=== PATIENT | male | born 1965 | race Caucasian/White ===

== ENCOUNTER 2018-01-26 07:41 | Day surgery (SDC) | payer MEDICARE ==
[~2018-01-26] VITALS: Ht 185.4 cm; Wt 81.4 kg
[2018-01-26] VITALS (7 sets, daily range): BP systolic 91–120; BP diastolic 50–80; PULSE 58–65; RESP 17–19; TEMP 97.9–98.1; O2SAT 93–99
[~2018-01-26 07:41] MED LIST: ALPR.25 PO; ASPI-516 CHEW; ENOX40P SQ; MAGN30S PO; METH500T3 PO; PERC10TA27 PO; PERI PO; SILD20TA11 PO; SOTA120T PO; TAMS5CAP PO; WALKER/FOLDING1 MIS; WHEEMIS3
[2018-01-26] MEDS ORDERED: SODIUM CHLOR 0.9% 1000 ML INJ 1,000 ML IV SCH (08:15)
[2018-01-26] MEDS ORDERED: BUPR150CR PO (08:15)
[2018-01-26] MEDS ORDERED: TIZA4CAP3 PO (08:16)
[2018-01-26] MEDS ORDERED: ATOR40TA16 PO (08:16)
[2018-01-26 08:41] LABS: AUTOMATED NEUTROPHIL # 4.5 TH/MM3 (1.8-7.7); BASOPHIL # 0.1 TH/MM3 (0-0.2); BASOPHIL % 0.9 % (0.0-2.0); EOSINOPHIL % 12.8 % (0.0-4.0); HEMATOCRIT 40.9 % (39.0-51.0); HEMOGLOBIN 13.7 GM/DL (13.0-17.0); LYMPH % 15.7 % (9.0-44.0); LYMPHOCYTE # 1.2 TH/MM3 (1.0-4.8); MEAN CELL VOLUME 87.4 FL (80.0-100.0); MEAN CORPUSCULAR HEMOGLOBIN 29.2 PG (27.0-34.0); MEAN CORPUSCULAR HGB CONC 33.4 % (32.0-36.0); MEAN PLATELET VOLUME 6.8 FL (7.0-11.0); MONO % 11.2 % (0.0-8.0); MONOCYTE # 0.8 TH/MM3 (0-0.9); NEUT % 59.4 % (16.0-70.0); PLATELET COUNT 260 TH/MM3 (150-450); RED BLOOD COUNT 4.69 MIL/MM3 (4.50-5.90); RED CELL DISTRIBUTION WIDTH 13.7 % (11.6-17.2); WHITE BLOOD COUNT 7.5 TH/MM3 (4.0-11.0)
[2018-01-26 08:49] LABS: INTERNATIONAL NORMALIZED RATIO 1.1 RATIO; PROTHROMBIN TIME - PATIENT 11.3 SEC (9.8-11.6)
[2018-01-26] MEDS ORDERED: MIDAZOLAM HCL 2 MG/2 ML VIAL ONE (09:32)
--- NOTE | 2018-01-26 10:24 | PD.RAD ---
Post CT Procedure Prog Note Pre Procedure Diagnosis: (1) Mass of upper lobe of right lung Post Procedure Diagnosis: (1) Mass of upper lobe of right lung Procedure Date: Jan 26, 2018 Supervising Radiologist: Alber Chowdhury Estimated blood loss: minimal Anesthesia: Conscious Sedation Plan of Activity Patient to Unit: ROPU Patient Condition: Good See PACS Report for procedural detail/treatment Biopsy Imaging Guidance: CT Side: Right Biopsy Procedure: Lung Site: right upper lobe Specimen: Core Biopsy Plan to ROPU and post procedure CXR Alber Chowdhury MD Jan 26, 2018 10:24
[2018-01-26] MEDS ORDERED: oxyCODONE/ACETAMINOPHEN 5 MG/325 MG TAB PO PRN (10:30)
--- NOTE | 2018-01-26 11:53 | RADRPT ---
EXAM DATE: 01/26/2018 11:47 AM EDT AGE/SEX: 52 years / Male INDICATIONS: Pneumothorax CLINICAL DATA: This is the patient's initial encounter. Patient reports that signs and symptoms have been present for 1 day and indicates a pain score of 0/10. MEDICAL/SURGICAL HISTORY: None. None. COMPARISON: [facility] [place]LE [place]OPSY LUNG, RIGHT, 01/26/2018. . FINDINGS: A single frontal expiratory view of the chest was performed. Right upper lobe pulmonary mass again no ama. No pneumothorax. No effusions. Heart is normal in size. Bilateral clavicular orthopedic plates. Old right-sided rib fractures. CONCLUSION: No pneumothorax following right upper lobe pulmonary mass biopsy. Electronically signed by: Cesar Panda MD 01/26/2018 11:52 AM EDT
--- NOTE | 2018-01-26 12:27 | RADRPT ---
EXAM DATE: 01/26/2018 10:38 AM EDT AGE/SEX: 52 years / Male INDICATIONS: Right lung mass CLINICAL DATA: This is the patient's subsequent encounter. Patient reports that signs and symptoms h ave been present for 1 day and indicates a pain score of 0/10. MEDICAL/SURGICAL HISTORY: Hypertension. . Bilateral ORIF clavicles COMPARISON: No prior [facility] exams available for comparison. SEDATION TIME (min): 25 minutes BIOPSY SITE: Right lung MEDICATION(S): 4 mg midazolam (Versed) IV 200 mcg fentanyl (Sublimaze) IV DEVICE(S): 20 gauge BARD biopsy needle 19 gauge Introducer . . PROCEDURE: CT guided Right lung biopsy Prior to the procedure informed consent was obtained. Any appropriate prior imaging studies were rev iewed. Using automated exposure control and adjustment of the mA and/or kV according to patient size , radiation dose was kept as low as reasonably achievable to obtain optimal diagnostic quality images . DICOM format image data is available electronically for review and comparison. The site was prepped in a sterile fashion. Full sterile technique was used, including cap, mask, petty rile gloves and gown and a large sterile sheet. Hand hygiene and 2% chlorhexidine and/or betadine/al cohol prep was utilized per protocol for cutaneous antisepsis. The skin and subcutaneous tissues wer e infiltrated with local anesthetic solution. With CT guidance the right upper lobe lung mass was localized. Biopsy was performed using the prescri bed needle as above. The inspector material disposition was present during the procedure. She felt that there was necrosis within the sample but adequate cells were also obtained. Adequate hemostasis was obtained wi th compression at the puncture site. Follow-up CT scan reveals no pneumothorax. There is mild perilesional hemorrhage. Conscious sedation was performed with the prescribed dosages and duration as above in the presence of an independent trained radiology nurse to assist in the monitoring of the patient. EKG and oximetry remained stable throughout the procedure. The patient tolerated the procedure well and there were no complications. The patient was sent to Radiology Outpatient Unit in stable condition. CONCLUSION: 1. Uncomplicated CT guided biopsy of the right upper lobe lung mass. Electronically signed by: Alber Chowdhury MD 01/26/2018 12:26 PM EDT
--- NOTE | 2018-01-26 13:15 | RADRPT ---
EXAM DATE: 01/26/2018 1:10 PM EDT AGE/SEX: 52 years / Male INDICATIONS: Right lung biopsy, evaluate for pneumothorax. CLINICAL DATA: This is the patient's subsequent encounter. Patient reports that signs and symptoms h ave been present for 2 days and indicates a pain score of 3/10. MEDICAL/SURGICAL HISTORY: Hypertension. . Bilateral ORIF clavicles. COMPARISON: [facility] – [place], CHEST EXPIRATION ONLY, 01/26/2018. . FINDINGS: Right upper lobe mass is again seen. There is no pneumothorax. There is no change. CONCLUSION: No pneumothorax post biopsy. Electronically signed by: Lane Harvey MD 01/26/2018 1:14 PM EDT
== END 2018-01-26 13:40 | disposition home or self-care (01) ==
LOC: HRAD 07:41 → HRIP 07:45 → HRAD 13:40
PROVIDERS: ATTEND Internal Medicine Hematology & Oncology
DX: R91.8 Other nonspecific abnormal finding of lung field (principal); I10 Essential (primary) hypertension; I48.91 Unspecified atrial fibrillation; F17.200 Nicotine dependence, unspecified, uncomplicated
CPT/HCPCS: 32405; 71045; 77012; 85025; 85610; 85730; 87015; 87070; 87102; 87116; 87205; 87206; 88305; 88333; 88341; 88342; 99152; 99153; J2250; J3010; J7030; 47000

== ENCOUNTER → 2018-02-10 | Outpatient (CLI) | payer MEDICARE ==
[~2018-02-10] MED LIST changes: +ATOR40TA16 PO; +BUPR150CR PO; -ENOX40P SQ; -MAGN30S PO; -METH500T3 PO; -PERI PO; -SILD20TA11 PO; -TAMS5CAP PO; +TIZA4CAP3 PO
[2018-02-10 12:07] LABS: AUTOMATED NEUTROPHIL # 13.6 TH/MM3 (1.8-7.7); BASOPHIL % 0.3 % (0.0-2.0); EOSINOPHIL # 0.1 TH/MM3 (0-0.4); EOSINOPHIL % 0.4 % (0.0-4.0); HEMATOCRIT 40.7 % (39.0-51.0); HEMOGLOBIN 13.4 GM/DL (13.0-17.0); LYMPH % 8.9 % (9.0-44.0); LYMPHOCYTE # 1.5 TH/MM3 (1.0-4.8); MEAN CELL VOLUME 86.6 FL (80.0-100.0); MEAN CORPUSCULAR HEMOGLOBIN 28.5 PG (27.0-34.0); MEAN CORPUSCULAR HGB CONC 32.9 % (32.0-36.0); MEAN PLATELET VOLUME 7.6 FL (7.0-11.0); MONOCYTE # 1.5 TH/MM3 (0-0.9); NEUT % 81.4 % (16.0-70.0); PLATELET COUNT 379 TH/MM3 (150-450); RED BLOOD COUNT 4.71 MIL/MM3 (4.50-5.90); RED CELL DISTRIBUTION WIDTH 14.1 % (11.6-17.2); WHITE BLOOD COUNT 16.7 TH/MM3 (4.0-11.0)
[2018-02-10 12:16] LABS: INTERNATIONAL NORMALIZED RATIO 1.1 RATIO; PROTHROMBIN TIME - PATIENT 11.3 SEC (9.8-11.6)
--- NOTE | 2018-02-10 12:16 | RADRPT ---
EXAM DATE: 02/10/2018 12:09 PM EDT AGE/SEX: 52 years / Male INDICATIONS: Evaluate for pneumonia, pneumothorax or communicable disease. Pre op thoracotomy. CLINICAL DATA: This is the patient's initial encounter. Patient reports that signs and symptoms have been present for 1 day and indicates a pain score of 0/10. MEDICAL/SURGICAL HISTORY: Carcinoma, lung. Hypertension. Afib . Bilateral clavicle fractures COMPARISON: [facility] – [place], [place]ST EXPIRATION ONLY, 01/26/2018. . FINDINGS: PA and lateral views the chest were obtained again demonstrate the large mass in the right upper lobe . There is no pneumothorax. The left lung remains clear. There are no new infiltrates or effusions. S crew-plate fixation devices are again noted along both clavicles. The heart size remains within jonah l limits. CONCLUSION: Stable appearance with known large mass right upper lobe. Otherwise no acute cardiopulmonary disease. Electronically signed by: Tone Lau MD 02/10/2018 12:15 PM EDT
[2018-02-10 12:26] LABS: BICARBONATE 26.3 MEQ/L (21.0-32.0); CALCIUM 9.1 MG/DL (8.5-10.1); CREATININE 0.8 MG/DL (0.60-1.30)
[2018-02-10 12:27] LABS: BILIRUBIN, URINE NEG (NEG); BLOOD, URINE SMALL (NEG); GLUCOSE,URINE NEG (NEG); KETONE, URINE TRACE mg/dL (NEG); MUCUS URINE MANY /lpf (OCC); NITRITE,URINE NEG (NEG); URINE COLOR Amber (YELLW/STRAW); URINE LEUKOCYTE ESTERASE NEG (NEG)
--- NOTE | 2018-02-10 18:42 | EKG ---
Date Performed: 02/10/2018 Time Performed: 11:10:29 PTAGE: 52 years EKG: Sinus rhythm RIGHT ATRIAL ENLARGEMENT POSSIBLE LEFT ATRIAL ENLARGEMENT ABNORMAL ECG Since the PREVIOUS TRACING , no significant change noted PREVIOUS TRACIN02/19/1994 16.00 DOCTOR: Ethel Prado Interpretating Date/Time 02/10/2018 18:41:03
== END ==
LOC: CPRE 10:41
PROVIDERS: ATTEND Thoracic Surgery (Cardiothoracic Vascular Surgery)
DX: Z01.812 Encounter for preprocedural laboratory examination (principal); Z01.810 Encounter for preprocedural cardiovascular examination; Z01.811 Encounter for preprocedural respiratory examination; C34.11 Malignant neoplasm of upper lobe, right bronchus or lung; I48.91 Unspecified atrial fibrillation; R94.31 Abnormal electrocardiogram [ECG] [EKG]
CPT/HCPCS: 36415; 71046; 80048; 81001; 85025; 85610; 85730; 93005

== ENCOUNTER 2018-03-22 05:13 | Inpatient (IN) ==
[2018-03-22] MEDS ORDERED: Sodium Chlor 0.9% Inj 500 ML IV.SIG SCH (06:00)
[2018-03-22] MEDS ORDERED: Chlorhexidine Gluconate 2% 1 Pack (2 Cloths) TOPICAL SCH (06:00)
[2018-03-22] MEDS ORDERED: Metoprolol Tartrate 25 MG Tablet PO SCH (06:00)
[2018-03-22 06:32] VITALS: O2SAT 99
[2018-03-22] MEDS ORDERED: Heparin - SQ 10,000 UNITS/ML Vial ONE (06:32)
[2018-03-22] MEDS ORDERED: ceFAZolin 2 GM Premix Inj 2 GM/50 ML PIGGYBACK IV.SIG ONE (06:32)
[2018-03-22] MEDS ORDERED: Sugammadex Inj 200 MG/2 ML Vial IV.PUSH ONE ×2 (06:34→08:35)
[2018-03-22] MEDS ORDERED: Sodium Chlor 0.9% Inj 20 ML, Bupivacaine Liposo PF 1.3% Inj 20 ML, Dexamethasone PF Inj... P-ARTICULR SCH ×8 (07:00)
--- NOTE | 2018-03-22 09:01 | P.OP ---
- Preoperative Diagnosis (1) Lung cancer Date of procedure: 03/22/18 Anesthesia: GETA Surgeon: Gabby Poole MD Operation and Findings: PREOPERATIVE DIAGNOSIS 1. Right [Upper] Lobe Lung Cancer 2. COPD 3. Chronic nicotine use POSTOPERATIVE DIAGNOSIS same PROCEDURES Fiberoptic bronchoscopy SURGEON Gabby Poole MD KNITTER HELPER [PADMINI Muro] ANESTHESIA General double-lumen endotracheal. BAKER PAINT CLAYTON Ocampo MD DRAINS None COUNTS Needle, sponge, and instrument counts were correct. COMPLICATIONS None. INDICATION FOR PROCEDURE The patient is a 53yo [gentleman] with a large right lung cancer presenting for surgical resection of above pathology. DESCRIPTION OF PROCEDURE The patient was brought to the operating suite and placed in supine position. Fiber bronchoscopy was performed at this time revealing a large right lung mass extending through the ostium of the right upper lobe bronchus into the main right bronchus. The mass was fungating into the endobronchial lumen with associated necrosis. Attempts at dislodge the mass to make sure it was not a mucous plug or clot were unsuccessful as the mass was densely adherent to the endobronchial tissue. Furthermore, the mass was proximally extending towards the esau with less than once centimeter space between the origin of the right mainstem bronchus and the extension into the mass, prohibiting the feasibility of a pneumonectomy. A lengthy cover station was had with the patient's mother in the recovery room and it was decided to abort the procedure at this time due to the fact that a complete resection would not be feasible and there would be tumor left behind on the bronchial margin. The patient was transferred to the PACU in stable condition.
[2018-03-22] MEDS ORDERED: fentaNYL Citrate Inj 100 MCG/2 ML Ampul ONE (09:03)
--- NOTE | 2018-03-22 09:33 | XR ---
EXAM DATE: 03/22/2018 9:29 AM EDT AGE/SEX: 53 years / Male INDICATIONS: R/o pneumothorax, post bronchoscopy CLINICAL DATA: This is the patient's initial encounter. Patient reports that signs and symptoms have been present for 1 day and indicates a pain score of 0/10. MEDICAL/SURGICAL HISTORY: Hypertension. lung cancer . bilateral orif of the clavicles [place] [facility] [place]&LAT[place]16/[place]. . FINDINGS: There is a large mass overlying the right upper lobe/right paratracheal region as before. Plate and s crew fixation of both clavicles again seen. The lungs are otherwise clear. There is a midthoracic com pression deformity again noted. CONCLUSION: Right upper lobe mass. No obvious pneumothorax. Electronically signed by: Margarito Santos MD 03/22/2018 9:32 AM EDT
[2018-03-22 10:00] VITALS: TEMP 97.7
[2018-03-22 10:29] VITALS: BP 117/69; PULSE 62; RESP 16
== END 2018-03-22 10:25 | disposition home or self-care (01) ==
LOC: HSDI 05:13
PROVIDERS: ADMIT Thoracic Surgery (Cardiothoracic Vascular Surgery); ATTEND Thoracic Surgery (Cardiothoracic Vascular Surgery)